=== PATIENT | female | born 1975 | race American Indian/Alaskan Native ===

== ENCOUNTER 2023-11-12 17:02 | Emergency (ER) | payer MEDICAID, SELFPAY ==
[2023-11-12 17:31] VITALS: BP 137/80; PULSE 98; RESP 20; TEMP 37.1; O2SAT 96; BMI 45.6
[2023-11-12 18:15] LABS: PCR FLU A Negative PCR FLU A (Negative); PCR FLU B Negative PCR FLU B (Negative); PCR RSV Negative PCR RSV (Negative)
[2023-11-12 18:23] LABS: SARS PCR* Negative SARS-CoV-2 (Negative)
[2023-11-12 19:27] VITALS: BP 125/78; PULSE 89; RESP 20; TEMP 36.8; O2SAT 96
--- OUTSIDE RECORDS SUMMARY | 2023-11-12 19:28 | XMS_ITS | Continuity of Care Document ---
Author Name Unknown Organization [facility] Address [address] [place] [address] Phone Care Team Providers Care Toy Maker Name Role Phone Siobhan Ruiz DNP Unavailable Unavailab le Allergies, Adverse Reactions, Alerts Substance Reaction Status Criticality No Known Allergies Active No Inform ation Medications Medication Instructions Dosage Effective Dates (start - stop) Status Comments hydrocodone 5 mg-acetaminophen 325 mg tablet Take 1 tablet by mouth every 6-8 hours. Max 3 tablets in 24 hours - Active Ok to fill today, clonidine HCl 0.1 mg tablet Take 1 tablet (0.1 mg total) by mouth 2 (two) times a day. For tics - Active albuterol sulfate HFA 90 mcg/actuation aerosol inhaler Inhale 2 puffs every 6 (six) hours as needed for wheezing or shortness of breath. - Active gabapentin 300 mg capsule TAKE 2 CAPSULES (600 MG TOTAL) BY MOUTH 3 TIMES A DAY. - Active warfarin 10 mg tablet USE ALONG WITH 5MG TAB; 15MG EVERY THU, THU; 10 MG ALL OTHER DAYS - OR ADVISED - Active omeprazole 20 mg capsule,delayed release Take 1 capsule (20 mg total) by mouth every morning before breakfast. - Active acetaminophen ER 650 mg tablet,extended release Take 1 tablet (650 mg total) by mouth every 8 (eight) hours. - Active triamcinolone acetonide 0.025 % topical cream APPLY EACH MORNING - Active Mirena 20 mcg/24 hours (8 yrs) 52 mg intrauterine device 1 each by intrauterine route continuously. - Active clonazepam 1 mg tablet TAKE 1 TABLET BY MOUTH ONCE A DAY NEEDED FOR ANXIETY. - Active escitalopram 20 mg tablet Take 1 tablet (20 mg total) by mouth daily. - Active trazodone 100 mg tablet Take 1 tablet (100 mg total) by mouth at bedtime. - Active bupropion HCl XL 150 mg 24 hr tablet, extended release Take 3 tablets by mouth daily. - Active clonidine 0.1 mg/24 hr weekly transdermal patch apply 1 patch by transdermal route every week 1.00 patch - Active Senokot-S 8.6 mg-50 mg tablet Take 1 tablet by mouth 2 (two) times a day as needed. - Active OPTIFIBER LEAN (unknown strength) Not Available - Active Procedures Procedure Date OFFICE/OUTPATIENT VISIT, EST Drug Urine Toxology With Chromatography Drug test def 15-21 classes OFFICE/OUTPATIENT VISIT, EST OFFICE/OUTPATIENT VISIT, EST OFFICE/OUTPATIENT VISIT, EST OFFICE/OUTPATIENT VISIT, EST OFFICE/OUTPATIENT VISIT, EST OFFICE/OUTPATIENT VISIT, EST Drug test def 8-14 classes Drug Urine Toxology With Chromatography OFFICE/OUTPATIENT VISIT, EST Foll-up eval q3mo opiod tx OFFICE VISIT, EST TELEMEDICINE OFFICE VISIT, EST TELEMEDICINE Foll-up eval q3mo opiod tx OFFICE VISIT, EST TELEMEDICINE Foll-up eval q3mo opiod tx OFFICE/OUTPATIENT VISIT, EST Foll-up eval q3mo opiod tx OFFICE VISIT, EST TELEMEDICINE Foll-up eval q3mo opiod tx OFFICE/OUTPATIENT VISIT, EST Foll-up eval q3mo opiod tx PT-FOCUSED HLTH RISK ASSMT OFFICE/OUTPATIENT VISIT, EST Drug Urine Toxology With Chromatography Drug test def 8-14 classes OFFICE/OUTPATIENT VISIT, EST OFFICE/OUTPATIENT VISIT, NEW Advance Directives Directive Yes / No Effective Date File Name No Information Encounters Encounter Description Practice Location Reason(s) For Visit Diagnoses Date Provider Providers Copied on Encounter OFFICE/OUTPAT IENT VISIT, [facility], [address] [place] [address], [id number] , [place] tel:[phone] [facility] [place] Widespread pain (chief complaint) Chronic pain syndromePain in shoulderPain in right hipInterverteb ral disc disorders with radiculopathy, lumbar regionLong term (current) use of opiate analgesicOther text transcriber (current) drug therapyPain in left kneePain in right knee 4 Sara Mccann. [address] [place] [address], [address], [id number], [place]. tel:[phone] Referring Provider: Refugio Suresh, [address] [place] [address], [id number]. tel:[phone] [facility], [address] [place] [address], [id number] , tel:[phone] [facility] No Information 3 Sara Mccann. [address] [facility] 11, [facility] [address], [place], [id number], [place]. tel:[phone] OFFICE/OUTPAT IENT VISIT, [facility], [address] [place] [address], [id number] , [place] tel:[phone] [facility] Widespread pain (chief complaint) Pain in shoulderPain in right hipPain in kneeInterverte bral disc disorders with radiculopathy, lumbar regionLong term (current) use of opiate analgesicOther retirement (current) drug therapyEncount er for therapeutic drug level monitoringChro selena pain syndrome 3 Sara Ashlie. [address], [address], [place], [place], [id number], [place]. tel:[phone] Referring Provider: Refugio Suresh, [address] [place] [address], [address]. tel:[phone] OFFICE/OUTPAT IENT VISIT, [facility], [address] [place] [address], [id number] , [place] tel:[phone] [facility] [place] Widespread pain (chief complaint) Pain in shoulderPain in right hipPain in kneeInterverte bral disc disorders with radiculopathy, lumbar regionLong term (current) use of opiate analgesicOther text transcriber (current) drug therapy 3 Christiane Celi. [address] [facility] [address], [id number], [place]. tel:[phone] Referring Provider: Refugio Suresh, [address] [place] [address], [address]. tel:[phone] OFFICE/OUTPAT IENT VISIT, [facility], [address] [place] [address], [id number] , [place] tel:[phone] [facility] Widespread pain (chief complaint) Pain in shoulderPain in right hipPain in kneeInterverte bral disc disorders with radiculopathy, lumbar regionLong term (current) use of opiate analgesicOther text transcriber (current) drug therapy 3 Christiane Celi. [address] [facility] 11 [facility] [address], [place], [id number], [place]. tel:[phone] Referring Provider: Refugio Suresh, [address] [place] [address], [address]. tel:[phone] OFFICE/OUTPAT IENT VISIT, [facility], [address] [place] [address], [id number] , [place] tel:[phone] [facility] Widespread pain (chief complaint) Pain in right hipPain in kneeInterverte bral disc disorders with radiculopathy, lumbar regionLong term (current) use of opiate analgesicOther retirement (current) drug therapyPain in shoulder 3 Christiane Celi. [address] [facility] [address], [place], [id number], [place]. tel:[phone] Referring Provider: Refugio Suresh, [address] [place] [address], [address]. tel:[phone] OFFICE/OUTPAT IENT VISIT, [facility], [address] [place] [address], [id number] , [place] tel:[phone] [facility] Widespread pain (chief complaint) Pain in right hipInterverteb ral disc disorders with radiculopathy, lumbar regionLong term (current) use of opiate analgesicOther retirement (current) drug therapyPain in knee 3 Christiane Celi. [address], [id number], [place]. tel:[phone] Referring Provider: Refugio Suresh, [address] [place] [address], [address]. tel:[phone] OFFICE/OUTPAT IENT VISIT, [facility], [address] [place] [address], [id number] , [place] tel:[phone] [facility] Widespread pain (chief complaint) Pain in right hipInterverteb ral disc disorders with radiculopathy, lumbar regionLong term (current) use of opiate analgesicOther text transcriber (current) drug therapy 3 - 3 Christiane Celi. [address] [address] [address], [place], [id number], [place]. tel:[phone] Referring Provider: Refugio Suresh, [address] [place] [address], [address]. tel:[phone] [facility], [address] [place] [address], [id number] , [place] tel:[phone] [facility] No Information 0 - 3 Christiane Celi. [address] [facility] [address], [place], [id number], [place]. tel:[phone] Referring Provider: Refugio Suresh, [address] [place] [address], [address]. tel:[phone] OFFICE/OUTPAT IENT VISIT, [facility], [address] [place] [address], [id number] , [place] tel:[phone] [facility] Widespread pain (chief complaint) ObesityPain in right hipInterverteb ral disc disorders with radiculopathy, lumbar regionLong term (current) use of opiate analgesicOther text transcriber (current) drug therapy Jet-0 2-202 [address] [place] [address] [address], [place], [id number], [place]. tel:[phone] Referring Provider: Refugio Suresh, [address] [place] [address], [address]. tel:[phone] OFFICE VISIT, [facility], [address] [place] [address], [id number] , [place] tel:[phone] [facility] Widespread pain (chief complaint) ObesityPain in right hipLong term (current) use of opiate analgesicOther text transcriber (current) drug therapyInterve rtebral disc disorders with radiculopathy, lumbar region Apr-2 6-202 3 Christiane Celi. [address] [facility] [address], [place], [id number], [place]. tel:[phone] Referring Provider: Refugio Suresh, [address] [place] [address], [address]. tel:[phone] OFFICE VISIT, [facility], [address] [place] [address], [id number] , [place] tel:[phone] [facility] Widespread pain (chief complaint) ObesityPain in right hipRadiculopat hy, lumbar regionLong term (current) use of opiate analgesicOther retirement (current) drug therapy Mar-3 0-202 3 Christiane Celi. [address] [facility] [address], [place], [id number], [place]. tel:[phone] OFFICE VISIT, [facility] TELEMEDICINE [facility], [address] [place] [address], [id number] , [place] tel:[phone] [facility] [place] Widespread pain (chief complaint) ObesityPain in right hipRadiculopat hy, lumbar regionLong term (current) use of opiate analgesicOther retirement (current) drug therapy Jan-0 2 3 Christiane Celi. [address], [id number], [place]. tel:[phone] OFFICE/OUTPAT IENT VISIT, [facility], [address] [place] [address], [id number] , [place] [phone] [facility] Widespread pain (chief complaint) ObesityPain in right hipRadiculopat hy, lumbar regionLong term (current) use of opiate analgesicOther text transcriber (current) drug therapy 0 3 Christiane Celi. [address], [id number], [place]. tel:[phone] Referring Provider: Refugio Suresh, [address] [place] [address], [address]. tel:[phone] OFFICE VISIT, [facility], [address] [place] [address], [id number] , [place] tel:[phone] [facility] Widespread pain (chief complaint) ObesityPain in right hipRadiculopat hy, lumbar regionLong term (current) use of opiate analgesicOther text transcriber (current) drug therapy 0 3 Christiane Celi. [address], [id number], [place]. tel:[phone] Referring Provider: Refugio Suresh, [address] [place] [address], [address]. tel:[phone] OFFICE/OUTPAT IENT VISIT, [facility], [address] [place] [address], [id number] , [place] tel:[phone] [facility] [place] Widespread pain (chief complaint) Pain in right hipRadiculopat hy, lumbar regionLong term (current) use of opiate analgesicOther text transcriber (current) drug therapyObesity 2 Christiane Celi. [address], [id number], [place]. tel:[phone] Referring Provider: Refugio Suresh, [address] [place] [address], [address]. tel:[phone] OFFICE/OUTPAT IENT VISIT, [facility], [address] [place] [address], [id number] , [place] tel:[phone] [facility] Widespread pain (chief complaint) Pain in right hipRadiculopat hy, lumbar regionLong term (current) use of opiate analgesicOther retirement (current) drug therapyEncount er for screening for other disorder 2 Christiane Celi. [address], [id number], [place]. tel:[phone] Referring Provider: Refugio Suresh, [address] [place] [address], [address]. tel:[phone] [facility], [address] [place] [address], [id number] , [place] tel:[phone] [facility] No Information 2 Christiane Celi. [address], [id number], [place]. tel:[phone] Referring Provider: Refugio Suresh, [address] [place] [address], [address]. tel:[phone] OFFICE/OUTPAT IENT VISIT, [facility], [address] [place] [address], [id number] , [place] tel:[phone] [facility] Widespread pain (chief complaint) Pain in right hipRadiculopat hy, lumbar regionLong term (current) use of opiate analgesicOther retirement (current) drug therapyEncount er for therapeutic drug level monitoring 2 Christiane Celi. [address], [id number], [place]. tel:[phone] Referring Provider: Refugio Suresh, [address] [place], [address]. tel:[phone] OFFICE/OUTPAT IENT VISIT, [facility], [address] [place], [place], [id number] , [place] tel:[phone] [facility] [place] right hip pain (chief complaint) Other text transcriber (current) drug therapyLong term (current) use of opiate analgesicPain in right hipRadiculopat hy, lumbar region 2 Delgadilloelmira Haider. [facility], [address], [place], [address], [place]. tel:[phone] Referring Provider: Lorrie Morel, [address], [address]. tel:[phone] Family History Family Member Type Diagnosis Age At Onset No Information Payers Payer name Insurance type Covered green party ID Authorsarah brennan(s) [employer] [id number] Social History Type Description Quantity Date Captured Comments Alcohol Use Details Unknown Caffeine Use Details Unknown Tobacco Use Status Occasional cigarette smoker Smoking Status Light tobacco smoker Sex Female Chief Complaint And Reason For Visit From encounter dated '11/10/2023 13:40'. Widespread pain (chief complaint). Description: The client describes it as sharp, achy and burning.Pertinent negatives include diarrhea, fatigue, fever and incontinence (urinary). Reason For Referral Reason For Referral No Information Plan Of Treatment Date Type Action Status Goal Review Allergy List. Due on due Goal TONGUE AND QUARTER STITCHER Scanned. Due on 024 due Goal HPV. Due on due Goal Creatinine. Due on 24 due Goal Unhealthy drug use screening . Due on due Goal Tobacco Use. Due on due Goal Update Social History. Due o n due Goal Order Annual PT. Due on due Goal PHQ-9. Due on du e Goal Medication Reconciliation. D ue on due Goal UDT. Due on due Goal ALT (SGPT). Due on due Goal Weight. Due on d ue Goal OARS. Due on due Goal Height. Due on d ue Goal MOBILE SALES TECHNICIAN Paperwork. Due on due Goal Hepatitis C screening. Due o n due Goal AST (SGOT). Due on due Goal Lipid panel. Due on due Goal UDT. Due on due Goal Medication Reconciliation. D ue on due Goal Tobacco Use. Due on due Goal Height. Due on d ue Goal AST (SGOT). Due on due Goal PHQ-9. Due on du e Goal ALT (SGPT). Due on due Goal Creatinine. Due on due Goal Lipid panel. Due on due Goal OARS. Due on due Goal Order Annual PT. Due on due Goal Review Allergy List. Due on due Goal MOBILE SALES TECHNICIAN Paperwork. Due on due Goal TONGUE AND QUARTER STITCHER Scanned. Due on due Goal HPV. Due on due Goal Weight. Due on d ue Goal Unhealthy drug use screening . Due on due Goal Update Social History. Due o n due Goal Hepatitis C screening. Due o n due Goal MOBILE SALES TECHNICIAN Paperwork. Due on due Goal Unhealthy drug use screening . Due on due Goal Order Annual PT. Due on due Goal UDT. Due on due Goal Hepatitis C screening. Due o n due Goal ALT (SGPT). Due on due Goal Weight. Due on d ue Goal OARS. Due on due Goal Update Social History. Due o n due Goal AST (SGOT). Due on due Goal Height. Due on d ue Goal PHQ-9. Due on du e Goal Lipid panel. Due on due Goal TONGUE AND QUARTER STITCHER Scanned. Due on due Goal Tobacco Use. Due on due Goal Review Allergy List. Due on due Goal Medication Reconciliation. D ue on due Goal Creatinine. Due on due Goal HPV. Due on due Goal ALT (SGPT). Due on due Goal Unhealthy drug use screening . Due on due Goal OARS. Due on due Goal Hepatitis C screening. Due o n due Goal Weight. Due on d ue Goal UDT. Due on due Goal Tobacco Use. Due on due Goal PHQ-9. Due on du e Goal Lipid panel. Due on due Goal Update Social History. Due o n due Goal MOBILE SALES TECHNICIAN Paperwork. Due on due Goal TONGUE AND QUARTER STITCHER Scanned. Due on due Goal Medication Reconciliation. D ue on due Goal AST (SGOT). Due on due Goal Creatinine. Due on due Goal Review Allergy List. Due on due Goal Height. Due on d ue Goal Order Annual PT. Due on due Goal HPV. Due on due Goal Tobacco cessation counseling completed Goal Lifestyle education regardin g diet completed Goal Weight. Due on d ue Goal Medication Reconciliation. D ue on due Goal Review Allergy List. Due on due Goal Order Annual PT. Due on due Goal Height. Due on d ue Goal OARS. Due on due Goal MOBILE SALES TECHNICIAN Paperwork. Due on due Goal HPV. Due on due Goal Creatinine. Due on due Goal PHQ-9. Due on du e Goal Hepatitis C screening. Due o n due Goal Lipid panel. Due on due Goal AST (SGOT). Due on due Goal Unhealthy drug use screening . Due on due Goal Update Social History. Due o n due Goal Tobacco Use. Due on due Goal ALT (SGPT). Due on due Goal TONGUE AND QUARTER STITCHER Scanned. Due on due Goal UDT. Due on due Goal UDT. Due on due Goal Hepatitis C screening. Due o n due Goal AST (SGOT). Due on due Goal Creatinine. Due on due Goal Update Social History. Due o n due Goal HPV. Due on due Goal OARS. Due on due Goal Height. Due on d ue Goal Unhealthy drug use screening . Due on due Goal Medication Reconciliation. D ue on due Goal Review Allergy List. Due on due Goal Tobacco Use. Due on due Goal Weight. Due on d ue Goal Order Annual PT. Due on due Goal Lipid panel. Due on due Goal ALT (SGPT). Due on due Goal PHQ-9. Due on du e Goal MOBILE SALES TECHNICIAN Paperwork. Due on due Goal TONGUE AND QUARTER STITCHER Scanned. Due on due Goal Creatinine. Due on due Goal Order Annual PT. Due on due Goal UDT. Due on due Goal OARS. Due on due Goal MOBILE SALES TECHNICIAN Paperwork. Due on due Goal ALT (SGPT). Due on due Goal TONGUE AND QUARTER STITCHER Scanned. Due on due Goal AST (SGOT). Due on due Goal HPV. Due on due Goal Unhealthy drug use screening . Due on due Goal Height. Due on d ue Goal Update Social History. Due o n due Goal PHQ-9. Due on du e Goal Weight. Due on d ue Goal Medication Reconciliation. D ue on due Goal Tobacco Use. Due on due Goal Review Allergy List. Due on due Goal Lipid panel. Due on due Goal Hepatitis C screening. Due o n due Goal Order Annual PT. Due on due Goal Lipid panel. Due on due Goal OARS. Due on due Goal Height. Due on d ue Goal TONGUE AND QUARTER STITCHER Scanned. Due on due Goal ALT (SGPT). Due on due Goal Hepatitis C screening. Due o n due Goal AST (SGOT). Due on due Goal Tobacco Use. Due on due Goal Review Allergy List. Due on due Goal MOBILE SALES TECHNICIAN Paperwork. Due on due Goal PHQ-9. Due on du e Goal HPV. Due on due Goal UDT. Due on due Goal Creatinine. Due on due Goal Unhealthy drug use screening . Due on due Goal Medication Reconciliation. D ue on due Goal Update Social History. Due o n due Goal Weight. Due on d ue Goal Order Annual PT. Due on due Goal Height. Due on d ue Goal AST (SGOT). Due on due Goal Review Allergy List. Due on due Goal Creatinine. Due on due Goal MOBILE SALES TECHNICIAN Paperwork. Due on due Goal Update Social History. Due o n due Goal ALT (SGPT). Due on due Goal OARS. Due on due Goal Tobacco Use. Due on due Goal UDT. Due on due Goal HPV. Due on due Goal Weight. Due on d ue Goal Unhealthy drug use screening . Due on due Goal TONGUE AND QUARTER STITCHER Scanned. Due on 023 due Goal Hepatitis C screening. Due o n due Goal Lipid panel. Due on 023 due Goal Medication Reconciliation. D ue on due Goal PHQ-9. Due on du e Goal Lipid panel. Due on 023 due Goal Medication Reconciliation. D ue on due Goal UDT. Due on due Goal Hepatitis C screening. Due o n due Goal Height. Due on d ue Goal Review Allergy List. Due on due Goal Update Social History. Due o n due Goal Order Annual PT. Due on due Goal ALT (SGPT). Due on due Goal Creatinine. Due on due Goal OARS. Due on due Goal PHQ-9. Due on du e Goal HPV. Due on due Goal Tobacco Use. Due on due Goal MOBILE SALES TECHNICIAN Paperwork. Due on due Goal Weight. Due on d ue Goal TONGUE AND QUARTER STITCHER Scanned. Due on due Goal Unhealthy drug use screening . Due on due Goal AST (SGOT). Due on due Goal PHQ-9. Due on du e Goal Height. Due on d ue Goal Weight. Due on d ue Goal Tobacco Use. Due on due Goal HPV. Due on due Goal Hepatitis C screening. Due o n due Goal Review Allergy List. Due on due Goal Lipid panel. Due on due Goal Unhealthy drug use screening . Due on due Goal Update Social History. Due o n due Goal Medication Reconciliation. D ue on due Goal Creatinine. Due on due Goal ALT (SGPT). Due on due Goal AST (SGOT). Due on due Goal TONGUE AND QUARTER STITCHER Scanned. Due on due Goal UDT. Due on due Goal Order Annual PT. Due on due Goal OARS. Due on due Goal MOBILE SALES TECHNICIAN Paperwork. Due on due Goal MOBILE SALES TECHNICIAN Paperwork. Due on due Goal Order Annual PT. Due on due Goal ALT (SGPT). Due on due Goal Review Allergy List. Due on due Goal Tobacco Use. Due on due Goal Lipid panel. Due on due Goal AST (SGOT). Due on due Goal Medication Reconciliation. D ue on due Goal Hepatitis C screening. Due o n due Goal Update Social History. Due o n due Goal Height. Due on d ue Goal UDT. Due on due Goal TONGUE AND QUARTER STITCHER Scanned. Due on due Goal PHQ-9. Due on du e Goal Creatinine. Due on due Goal OARS. Due on due Goal HPV. Due on due Goal Unhealthy drug use screening . Due on due Goal Weight. Due on d ue Goal UDT. Due on due Goal Tobacco Use. Due on due Goal Update Social History. Due o n due Goal Hepatitis C screening. Due o n due Goal PHQ-9. Due on du e Goal MOBILE SALES TECHNICIAN Paperwork. Due on due Goal OARS. Due on due Goal TONGUE AND QUARTER STITCHER Scanned. Due on due Goal Lipid panel. Due on due Goal Order Annual PT. Due on due Goal Creatinine. Due on due Goal Medication Reconciliation. D ue on due Goal Review Allergy List. Due on due Goal Height. Due on d ue Goal Unhealthy drug use screening . Due on due Goal AST (SGOT). Due on due Goal HPV. Due on due Goal Weight. Due on d ue Goal ALT (SGPT). Due on due Goal ALT (SGPT). Due on due Goal Height. Due on d ue Goal UDT. Due on due Goal PHQ-9. Due on du e Goal Tobacco Use. Due on due Goal Weight. Due on d ue Goal Hepatitis C screening. Due o n due Goal Review Allergy List. Due on due Goal Medication Reconciliation. D ue on due Goal Update Social History. Due o n due Goal HPV. Due on due Goal Unhealthy drug use screening . Due on due Goal Lipid panel. Due on 023 due Goal Creatinine. Due on due Goal MOBILE SALES TECHNICIAN Paperwork. Due on due Goal Order Annual PT. Due on due Goal AST (SGOT). Due on due Goal OARS. Due on due Goal TONGUE AND QUARTER STITCHER Scanned. Due on 023 due Goal Hepatitis C screening. Due o n due Goal Height. Due on d ue Goal Creatinine. Due on due Goal AST (SGOT). Due on due Goal Order Annual PT. Due on due Goal Unhealthy drug use screening . Due on due Goal UDT. Due on due Goal Medication Reconciliation. D ue on due Goal Weight. Due on d ue Goal Update Social History. Due o n due Goal ALT (SGPT). Due on due Goal PHQ-9. Due on du e Goal OARS. Due on due Goal Review Allergy List. Due on due Goal MOBILE SALES TECHNICIAN Paperwork. Due on due Goal HPV. Due on due Goal TONGUE AND QUARTER STITCHER Scanned. Due on due Goal Tobacco Use. Due on due Goal Lipid panel. Due on due Goal ALT (SGPT). Due on due Goal Lipid panel. Due on due Goal HPV. Due on due Goal OARS. Due on due Goal Tobacco Use. Due on due Goal Medication Reconciliation. D ue on due Goal Weight. Due on d ue Goal MOBILE SALES TECHNICIAN Paperwork. Due on due Goal Order Annual PT. Due on due Goal Review Allergy List. Due on due Goal Update Social History. Due o n due Goal Creatinine. Due on due Goal Unhealthy drug use screening . Due on due Goal TONGUE AND QUARTER STITCHER Scanned. Due on due Goal Height. Due on d ue Goal AST (SGOT). Due on due Goal UDT. Due on due Goal PHQ-9. Due on du e Goal Hepatitis C screening. Due o n due Goal AST (SGOT). Due on due Goal MOBILE SALES TECHNICIAN Paperwork. Due on due Goal Weight. Due on d ue Goal Order Annual PT. Due on due Goal ALT (SGPT). Due on due Goal Hepatitis C screening. Due o n due Goal Tobacco Use. Due on due Goal Creatinine. Due on due Goal TONGUE AND QUARTER STITCHER Scanned. Due on due Goal Medication Reconciliation. D ue on due Goal Lipid panel. Due on due Goal OARS. Due on due Goal Update Social History. Due o n due Goal UDT. Due on due Goal PHQ-9. Due on du e Goal Unhealthy drug use screening . Due on due Goal Height. Due on d ue Goal HPV. Due on due Goal Review Allergy List. Due on due Goal UDT. Due on due Goal Hepatitis C screening. Due o n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 Medication provides moderate benefit for increased functionality. Presents surplus with prescribed medication today.Previously managed on Medrol pack, Vicodin, and Orlando 5-325. MME: 15 mg/day. UDT results from 10/09/2023 previously reviewed and are consistent with current medication regimen. 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 Injections previously with benefit impression See above Mental Status Date Cognitive Assessment Orientation - [place] ed to time, place, person, situation. Patient Care Teams Name Effective Dates (start - stop) Status Members No Information
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
--- NOTE | 2023-11-12 19:29 | ED_ITS ---
HPI - General Adult General Date Seen: 11/12/23 Chief complaint: Cough Stated complaint: possible COVID Time Seen by Provider: 11/12/23 19:04 Source: patient Mode of arrival: ambulatory Limitations: no limitations History of Present Illness HPI narrative: Patient is a 48-year-old female presenting to emergency department for fatigue, muscle aches, cough. She states symptoms started yesterday. States her son came to emergency department so she figured she get tested for COVID. Denies chest pain, shortness of breath, weakness, numbness, headache, vision changes, lightheadedness, dizziness. Is not aware of any sick contacts. Is having some sinus pressure she states. Mostly on the right side. No other concerns noted Related Data Home Medications Medication Instructions Recorded Confirmed albuterol sulfate 90 mcg/actuation inhalation 10/27/22 10/27/22 aerosol inhaler (Ventolin HFA) bupropion HCl 150 mg 24 hr tablet, tab PO 10/27/22 10/27/22 extended release clonazepam 1 mg tablet 1 mg PO 10/27/22 10/27/22 escitalopram oxalate 20 mg tablet 20 mg PO 10/27/22 10/27/22 gabapentin 300 mg capsule 300 mg PO 10/27/22 10/27/22 hydrocodone 5 mg-acetaminophen 325 1 tab PO 10/27/22 10/27/22 mg tablet omeprazole 20 mg capsule,delayed 20 mg PO 10/27/22 10/27/22 release trazodone 100 mg tablet 100 mg PO 10/27/22 10/27/22 triamcinolone acetonide 0.025 % applic topical 10/27/22 10/27/22 topical cream warfarin 10 mg tablet (Jantoven) 10 mg PO 10/27/22 10/27/22 Allergies Allergy/AdvReac Type Severity Reaction Status Date / Time No Known Drug Allergies Allergy Verified 11/12/23 17:35 Review of Systems Status of ROS: Reports: 10 or more systems reviewed and unremarkable except as noted in History and below [facility] Medical History Back problem ?M53.9 - Dorsopathy, unspecified (ICD-10) Arthritis ?M19.90 - Unspecified osteoarthritis, unspecified site (ICD-10) Anxiety ?F41.9 - Anxiety disorder, unspecified (ICD-10) Depression ?F32.A - Depression, unspecified (ICD-10) Asthma ?J45.909 - Unspecified asthma, uncomplicated (ICD-10) Pulmonary embolism ?I26.99 - Other pulmonary embolism without acute cor pulmonale (ICD-10) DVT (deep venous thrombosis) ?I82.409 - Acute embolism and thrombosis of unspecified deep veins of unspecified lower extremity (ICD-10) Surgical History History of surgery on arm ?Z98.890 - Other specified postprocedural states (ICD-10) Social History Smoking Status: Never smoker Second hand tobacco smoke exposure: No How often do you have a drink containing alcohol: never AUDIT-C Alcohol total score: 0 Non-prescribed substance use: denies use Exam Narrative: Exam Narrative: Const: Well-nourished, Well-developed, in mild distress Eyes: PERRL, no conjunctival injection, and symmetrical lids HENT: Atraumatic external nose and ears. Moist mucous membranes. Neck: Symmetric, trachea midline, No thyromegaly. CVS: RRR, No murmurs or gallops. Peripheral pulses 2+ and equal in all extremities RESP: Unlabored respiratory effort. Clear to auscultation bilaterally. GI: Nontender/Nondistended, No rebound or guarding. MSK:Extremities w/o deformity, Normal Active ROM Skin: Warm, Dry. No rashes or lesions. Neuro: Normal Muscle tone, No focal neurological deficits. Psych: Awake, Alert, & Oriented x3. Appropriate mood and affect. Const: Vital Signs, click to edit/add: Vital Signs - 24 hr 11/12/23 17:31 11/12/23 19:27 11/12/23 19:30 Temperature 98.7 F 98.2 F 98.2 F Pulse Rate [Right Pulse Oximeter] 98 89 89 Respiratory Rate 20 20 20 Blood Pressure [Ri ght Upper Arm] 137/80 125/78 125/78 Pulse Oximetry 96 96 Oxygen Delivery Me thod Room Air Room Air Course Vital Signs Vital signs: Initial Vital Signs Temperature 98.7 F 11/12/23 17:31 Temperature Source Temporal Artery Scan 11/12/23 17:31 Pulse Rate 98 11/12/23 17:31 Pulse Rhythm Regular 11/12/23 17:31 Pulse Strength 3+ Normal 11/12/23 17:31 Respiratory Rate 20 11/12/23 17:31 Blood Pressure 137/80 11/12/23 17:31 Blood Pressure Mean 99 11/12/23 17:31 Blood Pressure Position Sitting 11/12/23 17:31 Pulse Oximetry 96 11/12/23 17:31 Oxygen Delivery Method Room Air 11/12/23 17:31 Vital Signs Temperature 98.7 F 11/12/23 17:31 Pulse Rate 98 11/12/23 17:31 Respiratory Rate 20 11/12/23 17:31 Blood Pressure 137/80 11/12/23 17:31 Pulse Oximetry 96 11/12/23 17:31 Oxygen Delivery Method Room Air 11/12/23 17:31 Temperature 98.2 F 11/12/23 19:30 Pulse Rate 89 11/12/23 19:30 Respiratory Rate 20 11/12/23 19:30 Blood Pressure 125/78 11/12/23 19:30 Pulse Oximetry 96 11/12/23 19:27 Oxygen Delivery Method Room Air 11/12/23 19:27 Medical Decision Making MDM Narrative Medical decision making narrative: Patient is a 48-year-old female presenting to emergency department for a COVID test. She is having some symptoms of sinusitis since the right maxillary sinus. Is not having any chest pain or shortness of breath. She looks otherwise well with stable vital signs. She denies any other concerns. Pneumonia, pneumothorax, ACS all seem very unlikely at this time. Symptoms are most likely viral in nature. COVID/flu/RSV are negative. She will be discharged home. She is agreeable to this plan. Lab Data Labs: Lab Results 11/12/23 Range/Units 17:31 SARS-CoV-2 (PCR) Negative SARS-CoV-2 (Negative) Influenza Type A (PCR) Negative PCR FLU A (Negative) Influenza Type B (PCR) Negative PCR FLU B (Negative) RSV (PCR) Negative PCR RSV (Negative) Discharge Plan Discharge Clinical Impression: Acute viral syndrome Patient Disposition: Home, Self-Care Condition: Stable Instructions: Viral Syndrome (ED) Additional Instructions: Take Tylenol and ibuprofen for muscle aches. Return to emergency department for new or worsening symptoms. Prescriptions: No Action escitalopram oxalate 20 mg tablet 20 mg PO gabapentin 300 mg capsule 300 mg PO warfarin [Jantoven] 10 mg tablet 10 mg PO omeprazole 20 mg capsule,delayed release(DR/EC) 20 mg PO hydrocodone-acetaminophen 5-325 mg tablet 1 tab PO bupropion HCl 150 mg tablet extended release 24 hr PO triamcinolone acetonide 0.025 % cream topical trazodone 100 mg tablet 100 mg PO clonazepam 1 mg tablet 1 mg PO albuterol sulfate [Ventolin HFA] 90 mcg/actuation HFA aerosol inhaler inhalation Follow Up/Referrals: Lorrie Zavala, [facility] [Primary Care Provider] - Stand Alone Forms: [facility] Info Instructions
[2023-11-12 19:30] VITALS: BP 125/78; PULSE 89; RESP 20; TEMP 36.8
== END 2023-11-12 19:30 | disposition home or self-care (01) ==
PROVIDERS: Emergency Provider Student in an Organized Health Care Education/Training Program; PCP Nurse Practitioner Family
DX: B34.9 Viral infection, unspecified (principal)
CPT/HCPCS: 87631; 99282; 99283